=== PATIENT | female | born 1970 | race Caucasian/White ===

== ENCOUNTER 2016-08-15 16:50 | Observation (INO) | payer OTHER ==
[~2016-08-15] VITALS: Ht 177.8 cm; Wt 81.6 kg
[2016-08-15 17:17] LABS: HEMOGLOBIN 11.9 gm/dl (12.3-15.3); RED BLOOD COUNT 3.88 M/UL (4.00-5.10); WHITE BLOOD COUNT 10.4 K/UL (4.5-11.0)
[2016-08-15 17:38] LABS: BUN/CREATININE RATIO 8 (0-10)
[2016-08-16] MEDS ORDERED: PROZAC20 MG PO (00:53)
[2016-08-16] MEDS ORDERED: KLONOPIN TAB 00.5 MG PO (00:53)
[2016-08-16] MEDS ORDERED: TRAZODONE HCL50 MG PO (00:53)
[2016-08-16] MEDS ORDERED: IBUPROFEN800 MG PO (00:54)
[2016-08-16] MEDS ORDERED: NEURONTIN 300300 MG PO (00:54)
[2016-08-16] MEDS ORDERED: ZANAFLEX4 M1 PO (00:55)
[2016-08-16 08:06] LABS: BUN/CREATININE RATIO 10 (0-10)
[2016-08-17 05:11] LABS: BUN/CREATININE RATIO 11 (0-10)
[2016-08-17] MEDS ORDERED: DICYCLOMINE HCL10 MG PO (09:13)
[2016-08-17] MEDS ORDERED: CLARITIN10 MG PO (09:14)
[2016-08-17] MEDS ORDERED: TRAMADOL HCL50 MG PO (09:16)
[2016-08-17] MEDS ORDERED: LISINOPRIL20 MG PO (09:20)
--- NOTE | 2016-08-17 12:48 | NUR ---
PATIENT WAS FOUND WITH ALL HER BELONGINGS WALKING TOWARD THE ELEVATOR. I STOPPED HER TO ASK WHAT SHE WAS DOING AND SHE STATED THAT SHE WAS LEAVING. I TOLD HER THAT HER PHYSICIAN WAS ON THE FLOOR AND WOULD BE TO SEE HER SHORTLY AND SHE STATED THAT SHE DIDN'T CARE. I NOTIFIED DR. RICHEY THAT SHE WAS WANTING TO LEAVE AGAINST MEDICAL ADVICE. HE CAME OUT TO SPEAK WITH THE PATIENT. HE OFFERED FOR HER TO WAIT JUST A LITTLE BIT LONGER FOR DISCHARGE PAPERS AND SHE REFUSED. AT THAT TIME SHE BEGAN WALKING BACK DOWN TOWARDS THE ELEVATOR AND I ASKED HER TO SIGN THE AMA FORM AND SHE REFUSED. SHE GOT ONTO THE ELEVATOR AND LEFT AT THAT TIME.
== END 2016-08-17 12:40 | disposition other institution (70) ==
LOC: ER1 16:50 → ZEROF 23:06 → M/S 23:06
PROVIDERS: Emergency Medicine; Internal Medicine Infectious Disease; ADMIT Internal Medicine
DX: R11.2 Nausea with vomiting, unspecified (principal); R07.9 Chest pain, unspecified; K21.9 Gastro-esophageal reflux disease without esophagitis; I10 Essential (primary) hypertension; F41.9 Anxiety disorder, unspecified; F17.210 Nicotine dependence, cigarettes, uncomplicated; Z98.84 Bariatric surgery status; Z87.19 Personal history of other diseases of the digestive system; R00.1 Bradycardia, unspecified
CPT/HCPCS: 36415; 71010; 76705; 80048; 80053; 80061; 82150; 82550; 82553; 83690; 83874; 84439; 84443; 84484; 85025; 85379; 93005; 94664; 96374; 96375; 96376; 99285; C9113; G0378; J1885; J2060; J2405; J2550; J2765; J7030; J7050; Q9963

== ENCOUNTER 2016-11-16 11:08 | Emergency (ER) | payer OTHER ==
[~2016-11-16 11:08] MED LIST: CLARITIN10 MG PO; DICYCLOMINE HCL10 MG PO; IBUPROFEN800 MG PO; KLONOPIN TAB 00.5 MG PO; LISINOPRIL20 MG PO; NEURONTIN 300300 MG PO; PROZAC20 MG PO; TRAMADOL HCL50 MG PO; TRAZODONE HCL50 MG PO; ZANAFLEX4 M1 PO
== END 2016-11-16 12:20 | disposition home or self-care (01) ==
LOC: ER1 11:08
DX: M77.11 Lateral epicondylitis, right elbow (principal); Z76.0 Encounter for issue of repeat prescription; I10 Essential (primary) hypertension; F17.210 Nicotine dependence, cigarettes, uncomplicated; Z79.899 Other long term (current) drug therapy
CPT/HCPCS: 99281

== ENCOUNTER 2017-02-05 09:44 | Emergency (ER) | payer OTHER ==
[2017-02-05 10:20] LABS: HEMOGLOBIN 12.7 gm/dl (12.3-15.3); RED BLOOD COUNT 3.95 M/UL (4.00-5.10); WHITE BLOOD COUNT 9.7 K/UL (4.5-11.0)
[2017-02-05 10:37] LABS: BUN/CREATININE RATIO 13 (0-10)
== END 2017-02-05 14:38 | disposition home or self-care (01) ==
LOC: ER1 09:44
PROVIDERS: Emergency Medicine
DX: K20.9 Esophagitis, unspecified (principal); K58.9 Irritable bowel syndrome, unspecified; F17.200 Nicotine dependence, unspecified, uncomplicated
CPT/HCPCS: 36415; 80053; 83690; 84484; 85025; 85610; 85730; 93005; 96361; 96374; 96375; 96376; 99285; J1100; J2270; J2405; J7030; J7050; Q9962

== ENCOUNTER 2020-09-19 13:02 | Emergency (ER) | payer OTHER ==
[~2020-09-19 13:02] MED LIST changes: +CITROMA296 ML PO; +FLONASE 0.05% N16 GM; +MACROBID 100 M100 MG PO; +PHENERGAN 25 MG25 MG PR; +PREDNISONE 50 M50 MG PO; +SUDAFED 60 MG T60 MG PO; +ZITHROMAX250 MG PO; +ZOFRAN ODT 4 MG4 MG PO
== END 2020-09-19 16:15 | disposition left against medical advice (07) ==
LOC: ER1 13:02
DX: Z53.21 Procedure and treatment not carried out due to patient leaving prior to being seen by health care provider (principal)

== ENCOUNTER → 2021-10-02 | Outpatient (CLI) | payer OTHER ==
[~2021-10-02] MED LIST changes: +CETIRIZINE HCL10 MG PO; +CYMBALTA60 MG PO; +HYDROCODONE-AC1 EACH PO; +IMITREX50 MG PO; +LIPITOR20 MG PO; +MINOCYCLINE HC100 MG PO; +NEURONTIN600 MG PO; +NEXIUM40 MG PO; +ONDANSETRON HCL4 MG PO; +OXYBUTYNIN CHLOR5 MG PO; +PROZAC40 MG PO; +TIZANIDINE HCL4 MG PO; +VITAMIN B12 INJ; +VITAMIN D350 MC3 PO
[2021-10-02 09:50] LABS: HEMOGLOBIN 11.4 gm/dl (12.3-15.3); RED BLOOD COUNT 3.74 M/UL (4.00-5.10); WHITE BLOOD COUNT 7.4 K/UL (4.5-11.0)
[2021-10-02 10:20] LABS: BUN/CREATININE RATIO 22 (0-10)
== END ==
LOC: OPSV2 09-29 10:00 → EDSTATUS 08:00 → OPSV2 08:00
PROVIDERS: Anesthesiology
DX: Z01.818 Encounter for other preprocedural examination (principal)
CPT/HCPCS: 36415; 80048; 81001; 85025; 93005

== ENCOUNTER → 2021-10-05 | Outpatient (CLI) | payer OTHER ==
[2021-10-05 13:33] LABS: BUN/CREATININE RATIO 15 (0-10)
== END ==
LOC: LAB 12:19
PROVIDERS: Orthopaedic Surgery
DX: Z01.812 Encounter for preprocedural laboratory examination (principal)
CPT/HCPCS: 36415; 80048; 86850; 86900; 86901

== ENCOUNTER 2021-10-27 06:14 | Inpatient (IN) | payer OTHER ==
[~2021-10-27] VITALS: Ht 177.8 cm; Wt 99.8 kg
[2021-10-27 07:27] LABS: RED BLOOD COUNT 3.93 M/UL (4.00-5.10); WHITE BLOOD COUNT 6.8 K/UL (4.5-11.0)
[2021-10-27 07:48] LABS: BUN/CREATININE RATIO 16 (0-10)
[2021-10-28 06:43] LABS: HEMOGLOBIN 9.5 gm/dl (12.3-15.3); RED BLOOD COUNT 3.22 M/UL (4.00-5.10)
[2021-10-28 06:51] LABS: BUN/CREATININE RATIO 13 (0-10)
[2021-10-28] MEDS ORDERED: ASPIRIN EC81 MG PO (07:59)
[2021-10-28] MEDS ORDERED: HYDROCODON-ACE1 EAC1 PO (11:32)
[2021-10-28] MEDS ORDERED: HYDROCODON-ACE1 EAC2 PO (11:48)
== END 2021-10-28 13:00 | disposition home health service (06) | DRG 470 ==
LOC: OR 06:14 → MED SURG 4 06:15 → OR 09:00 → EDSTATUS 14:15 → MED SURG 4 15:53 → OR 10-28 13:00
PROVIDERS: Internal Medicine; ADMIT Orthopaedic Surgery
PROC: 0SRC0J9 Replacement of Right Knee Joint with Synthetic Substitute, Cemented, Open Approach (ICD-10-PCS; principal; 2021-10-27 09:00)
DX: M17.11 Unilateral primary osteoarthritis, right knee (principal); Z20.822 Contact with and (suspected) exposure to COVID-19; K21.9 Gastro-esophageal reflux disease without esophagitis; I10 Essential (primary) hypertension; E66.9 Obesity, unspecified; F41.9 Anxiety disorder, unspecified; M79.7 Fibromyalgia; F32.A Depression, unspecified; F17.290 Nicotine dependence, other tobacco product, uncomplicated; F12.10 Cannabis abuse, uncomplicated; Z98.891 History of uterine scar from previous surgery; Z90.710 Acquired absence of both cervix and uterus; Z98.0 Intestinal bypass and anastomosis status; Z82.49 Family history of ischemic heart disease and other diseases of the circulatory system; Z68.31 Body mass index [BMI] 31.0-31.9, adult
CPT/HCPCS: 36415; 73560; 80048; 85025; 85027; 86850; 86900; 86901; 97116; 97116-GP-CQ; 97162; 97165; C1713; C1776; J0690; J1100; J1170; J2250; J2270; J2274; J2405; J2704; J2795; J3010; J7120